=== PATIENT | male | born 1970 | race Caucasian/White ===

== ENCOUNTER 2016-11-15 06:50 | Emergency (ER) | payer OTHER ==
[~2016-11-15] VITALS: Ht 188 cm; Wt 123.6 kg
[~2016-11-15 06:50] MED LIST: ASPIRIN325 MG PO; BRILINTA90 MG PO; CARVEDILOL25 MG PO; DIGOXIN125 MCG PO; FISH OIL CONC1 EACH PO; LEVOTHYROXINE200 MC1 PO; LISINOPRIL20 MG PO; NITROSTAT0.4 MG SL; PANTOPRAZOLE SO40 MG PO; PAXIL20 MG PO; PERCOCET 10/1 TABLET PO; PERCOCET 5/31 TABLET PO; PLAVIX75 MG PO; PRAVACHOL40 MG; PRAVASTATIN SOD40 MG PO; PRINIVIL20 MG PO; ULTRAM50 MG PO; VALIUM5 MG PO; ZANTAC150 MG PO; ZESTRIL2.5 MG PO; ZOFRAN4 MG PO
[2016-11-15 07:51] LABS: MCH 29.6 PG (29.0-34.0); MCV 89.5 FL (86-99); MEAN PLAT.VOLUME 10.6 uM^3 (9.0-12.4); PLATELET COUNT 196 K/uL (156-360); RBC DIS.WIDTH-SD 42.2 % (39-53); RED BLOOD COUNT 5.14 M/uL (4.00-5.50); WHITE BLOOD COUNT 10.2 K/uL (4.1-10.2)
[2016-11-15 07:58] LABS: CHLORIDE 102 mEq/L (99-109); POTASSIUM 4.4 mEq/L (3.7-5.4); SODIUM 139 mEq/L (136-147)
[2016-11-15 08:00] LABS: GLUCOSE 141 mg/dL (70-99); INTER. NORMALIZED RATIO 1.1; PROTHROMBIN TIME 10.8 (9.2-11.2); PTT 33.6 (25-32)
[2016-11-15 08:01] LABS: ANION GAP 14 MEQ/L (2-14)
[2016-11-15 08:02] LABS: TOTAL BILIRUBIN 0.4 mg/dL (0.0-1.0)
[2016-11-15 08:03] LABS: ALKALINE PHOSPHATASE 45 IU/L (3-129)
[2016-11-15 08:04] LABS: GFR ESTIMATE (CALCULATED) > 59 mL/min/
[2016-11-15 08:05] LABS: UREA NITROGEN (BUN) 22 mg/dL (9-23)
[2016-11-15 08:07] LABS: LIPASE 36 U/L (1.0-51.0)
[2016-11-15 08:10] LABS: TROP-I INTERPRETATION NEGATIVE; TROPONIN-I < 0.01 ng/mL (0.0-0.30)
[2016-11-15 10:02] LABS: ADD MIUA? NO; BILIRUBIN NEGATIVE; BLOOD NEGATIVE; COLOR YELLOW ((YELLOW)); GLUCOSE (STRIP) NEGATIVE; KETONES NEGATIVE; LEUKOCYTES NEGATIVE; NITRITE NEGATIVE; PROTEIN (STRIP) 30; SPECIFIC GRAVITY 1.024 (1.000-1.030); UCUL ADDED? NO; UROBILINOGEN 0.2 MG/DL (0.2-1.0)
[2016-11-15] MEDS ORDERED: ZOFRAN ODT4 MG PO (10:37)
[2016-11-15] MEDS ORDERED: FLOMAX0.4 MG PO (10:37)
[2016-11-15] MEDS ORDERED: PERCOCET 5/31 TABLET PO (10:37)
[2016-11-15 11:17] VITALS: BP 143/82
== END 2016-11-15 11:18 | disposition home or self-care (01) ==
LOC: EME → EDBD 06:50 → EME 06:50
PROVIDERS: Nurse Practitioner Family
DX: N20.0 Calculus of kidney (principal); E78.5 Hyperlipidemia, unspecified; I25.2 Old myocardial infarction; Z95.5 Presence of coronary angioplasty implant and graft; Z95.810 Presence of automatic (implantable) cardiac defibrillator; Z79.02 Long term (current) use of antithrombotics/antiplatelets; Z79.82 Long term (current) use of aspirin; Z87.891 Personal history of nicotine dependence; R11.2 Nausea with vomiting, unspecified; R07.9 Chest pain, unspecified
CPT/HCPCS: 71020; 74176; 80053; 81003; 83690; 84484; 85027; 85610; 85730; 93005; 99281; 99285; J1885; J2270; J2405; J7030

== ENCOUNTER 2016-11-30 06:52 | Day surgery (SDC) | payer OTHER ==
[~2016-11-30] VITALS: Ht 188 cm; Wt 124.7 kg
[~2016-11-30 06:52] MED LIST changes: +CARAFATE1 GM PO; +ENTRESTO 49 MG1 EACH PO; +FLOMAX0.4 MG PO; +ZOFRAN ODT4 MG PO
[2016-12-02] MEDS ORDERED: PERCOCET 5/31 TABLET PO (15:03)
== END 2016-11-30 08:48 | disposition home or self-care (01) ==
LOC: PAIN 06:52 → SDC 07:30 → PAIN 08:48
DX: M47.26 Other spondylosis with radiculopathy, lumbar region (principal); F41.9 Anxiety disorder, unspecified; M51.26 Other intervertebral disc displacement, lumbar region; M51.36 Other intervertebral disc degeneration, lumbar region; M19.90 Unspecified osteoarthritis, unspecified site; Z87.891 Personal history of nicotine dependence; E11.9 Type 2 diabetes mellitus without complications; K21.9 Gastro-esophageal reflux disease without esophagitis; I25.10 Atherosclerotic heart disease of native coronary artery without angina pectoris; Z79.84 Long term (current) use of oral hypoglycemic drugs; Z88.0 Allergy status to penicillin; Z88.8 Allergy status to other drugs, medicaments and biological substances; E66.09 Other obesity due to excess calories; Z68.38 Body mass index [BMI] 38.0-38.9, adult
CPT/HCPCS: J1030; J2250; J3010; S0020

== ENCOUNTER 2016-12-07 06:55 | Day surgery (SDC) | payer OTHER ==
[~2016-12-07] VITALS: Ht 188 cm; Wt 124.7 kg
== END 2016-12-07 09:18 | disposition home or self-care (01) ==
LOC: PAIN 06:55 → SDC 07:30 → PAIN 07:30
DX: M51.16 Intervertebral disc disorders with radiculopathy, lumbar region (principal); M79.1 Myalgia; I50.20 Unspecified systolic (congestive) heart failure; I11.0 Hypertensive heart disease with heart failure; I25.10 Atherosclerotic heart disease of native coronary artery without angina pectoris; K21.9 Gastro-esophageal reflux disease without esophagitis; E11.9 Type 2 diabetes mellitus without complications; E78.1 Pure hyperglyceridemia; E03.9 Hypothyroidism, unspecified; F41.8 Other specified anxiety disorders; E66.09 Other obesity due to excess calories; Z68.37 Body mass index [BMI] 37.0-37.9, adult; Z95.810 Presence of automatic (implantable) cardiac defibrillator; Z87.891 Personal history of nicotine dependence; Z79.84 Long term (current) use of oral hypoglycemic drugs; Z79.02 Long term (current) use of antithrombotics/antiplatelets; Z79.891 Long term (current) use of opiate analgesic; Z79.899 Other long term (current) drug therapy; Z88.0 Allergy status to penicillin
CPT/HCPCS: J1030; J2250; J3010; S0020

== ENCOUNTER 2017-02-21 12:11 | Day surgery (SDC) | payer OTHER ==
[~2017-02-21] VITALS: Ht 188 cm; Wt 124.7 kg
[2017-02-21] MEDS ORDERED: FISH OIL + D31 EACH PO (12:28)
== END 2017-02-21 14:26 | disposition home or self-care (01) ==
LOC: PAIN 12:11 → SDC 13:15 → PAIN 13:15
DX: M47.26 Other spondylosis with radiculopathy, lumbar region (principal); M51.16 Intervertebral disc disorders with radiculopathy, lumbar region; M54.5 Low back pain; M79.1 Myalgia; M47.812 Spondylosis without myelopathy or radiculopathy, cervical region; I11.0 Hypertensive heart disease with heart failure; I50.20 Unspecified systolic (congestive) heart failure; I25.10 Atherosclerotic heart disease of native coronary artery without angina pectoris; K21.9 Gastro-esophageal reflux disease without esophagitis; E78.01 Familial hypercholesterolemia; E03.9 Hypothyroidism, unspecified; E66.09 Other obesity due to excess calories; Z68.37 Body mass index [BMI] 37.0-37.9, adult; Z87.891 Personal history of nicotine dependence; Z79.02 Long term (current) use of antithrombotics/antiplatelets; Z95.810 Presence of automatic (implantable) cardiac defibrillator; Z79.84 Long term (current) use of oral hypoglycemic drugs; Z79.891 Long term (current) use of opiate analgesic; Z88.0 Allergy status to penicillin
CPT/HCPCS: J1030; J2250; J3010; S0020

== ENCOUNTER 2017-04-19 10:52 | Day surgery (SDC) | payer OTHER ==
[~2017-04-19] VITALS: Ht 188 cm; Wt 124.7 kg
[~2017-04-19 10:52] MED LIST changes: +FISH OIL + D31 EACH PO
== END 2017-04-19 12:40 | disposition home or self-care (01) ==
LOC: PAIN 10:52
DX: M47.26 Other spondylosis with radiculopathy, lumbar region (principal); M51.16 Intervertebral disc disorders with radiculopathy, lumbar region; M79.1 Myalgia; I25.10 Atherosclerotic heart disease of native coronary artery without angina pectoris; F41.8 Other specified anxiety disorders; K21.9 Gastro-esophageal reflux disease without esophagitis; E03.9 Hypothyroidism, unspecified; I11.0 Hypertensive heart disease with heart failure; I50.20 Unspecified systolic (congestive) heart failure; Z87.891 Personal history of nicotine dependence; Z79.891 Long term (current) use of opiate analgesic; Z88.0 Allergy status to penicillin; E66.01 Morbid (severe) obesity due to excess calories; Z68.35 Body mass index [BMI] 35.0-35.9, adult; I25.2 Old myocardial infarction
CPT/HCPCS: J1030; J2250; J3010; S0020